=== PATIENT | male | born 1945 | race Caucasian/White ===

== ENCOUNTER 2021-11-24 20:13 | Inpatient (IN) ==
[2021-11-25] MEDS ORDERED: MOM Conc 10 ML UD.LIQ PO PRN ×2 (00:47→08:56)
[2021-11-25] MEDS ORDERED: Melatonin 3 MG TABLET PO PRN ×2 (00:47→08:56)
[2021-11-25] MEDS ORDERED: Acetaminophen 325 MG TABLET PO PRN ×2 (00:47→08:56)
[2021-11-25] MEDS ORDERED: Naloxone 0.4 MG/ML INJ IVP PRN ×2 (00:47→08:56)
[2021-11-25] MEDS ORDERED: *HR* Promethazine 25 MG/ML VIAL IM PRN ×2 (00:47→08:56)
[2021-11-25 01:37] LABS: Segmented Neutrophils % 80.5 %
[2021-11-25 01:38] LABS: Basophils # 0.2 K/mcL (0.0-0.2); Basophils % 0.6 %; Eosinophils # 0.2 K/mcL (0.0-0.6); Eosinophils % 0.7 %; Hemoglobin 9.5 g/dL (12.9-16.9); Immature Granulocytes % 6.8 % (0-4); Lymphocytes # 1.6 K/mcL (0.6-4.6); Mean Corpuscular HGB Conc 33.9 g/dL (31.6-35.5); Mean Corpuscular Hemoglobin 28.2 pg (28.0-33.3); Mean Corpuscular Volume 83.1 fL (83.0-100.0); Mean Platelet Volume 10.1 fL (9.4-12.4); Monocytes # 1.5 K/mcL (0.0-1.3); Monocytes % 5.4 %; Neutrophils # 21.7 K/mcL (1.6-8.9); Platelet Count 219 K/mcL (140-400); Red Blood Count 3.37 M/mcL (4.19-5.50); Red Cell Distribution Width 16.3 % (11.5-14.5)
[2021-11-25 01:58] LABS: Alanine Aminotransferase 26 Units/L (7-52); Albumin 2.2 g/dL (3.5-5.7); Albumin/Globulin Ratio 0.7 (1.1-2.2); Alkaline Phosphatase 72 Units/L (34-104); Aspartate Amino Transferase 39 Units/L (13-39); Bilirubin,Total 0.8 mg/dL (0.3-1.0); Blood Urea Nitrogen > 130 mg/dL (8-23); Calcium 8.6 mg/dL (8.6-10.3); Carbon Dioxide 23 mEq/L (23-29); Chloride 98 mEq/L (98-107); Glucose 108 mg/dL (70-105); Magnesium 2.4 mg/dL (1.6-2.6); Phosphorous 4.6 mg/dL (2.7-4.5); Sodium 132 mEq/L (136-145); Total Protein 5.2 g/dL (6.4-8.9); eGFR For African Americans 10 (> 60); eGFR For Non-African Americans 8 (> 60)
[2021-11-25 02:11] LABS: Hypochromasia Present (Not Present); Platelet Estimate Normal (Normal); Toxic Granulation Present (Not Present)
[2021-11-25] MEDS ORDERED: 0.9 % Sodium Chloride 1,000 ML IVC SCH (02:30)
[2021-11-25 03:10] LABS: C-Reactive Protein 132 mg/L (Less than 10)
[2021-11-25 03:42] LABS: Creatine Kinase 181 Units/L (30-223)
[2021-11-25] MEDS ORDERED: *HR* Dextrose 50 % in Water (Syg) 50 ML SYRINGE IVP PRN ×2 (04:10→08:56)
[2021-11-25] MEDS ORDERED: D5% in Water 1,000 ML IVC PRN ×2 (04:10→08:56)
[2021-11-25] MEDS ORDERED: Dextrose Gel 15 GM/37.5 ML TUBE PO PRN ×4 (04:10→08:56)
[2021-11-25] MEDS ORDERED: Pantoprazole 40 MG VIAL IVP SCH (06:00)
[2021-11-25 06:17] LABS: Bacteria,Urine Many per hpf (None-Few); Bilirubin,Urine Negative (Negative); Blood,Urine Moderate (Negative); Clarity,Urine Turbid (Clear); Color,Urine Yellow (Yellow); Glucose,Urine (UA) Normal (Normal); Ketones,Urine Negative (Negative); Leukocyte Esterase,Urine Large (Negative); Mucus,Urine Few per lpf (None-Few); Nitrite,Urine Negative (Negative); Protein,Urine 100 mg/dL (Neg-Trace); RBC,Urine TNTC per hpf (0-3); Renal Epithelial Cells,Urine Few per hpf (None-Few); Specific Gravity,Urine 1.015 (1.010-1.025); Urobilinogen,Urine Normal (Normal); WBC,Urine TNTC per hpf (0-3)
[2021-11-25] MEDS ORDERED: *HR* Propofol 200 MG/20 ML VIAL IVP ONE (07:20)
[2021-11-25] MEDS ORDERED: *HR* FentaNYL (PF) 100 MCG/2 ML VIAL ONE (07:20)
[2021-11-25] MEDS ORDERED: Ondansetron 4 MG/2 ML VIAL ONE (07:20)
[2021-11-25] MEDS ORDERED: Lidocaine -MPF 2% 5 ML VIAL ONE (07:20)
[2021-11-25] MEDS ORDERED: Sucralfate 1 GM TABLET PO SCH (07:30)
[2021-11-25] MEDS ORDERED: *HR* HYDROmorphone PF 0.5 MG/0.5 ML SYRINGE IVP PRN (07:45)
[2021-11-25] MEDS ORDERED: *HR* OxyCODONE Immed Rel 5 MG TABLET PO PRN (07:45)
[2021-11-25] MEDS ORDERED: Ondansetron 4 MG/2 ML VIAL IVP PRN (07:45)
[2021-11-25] MEDS ORDERED: *HR* Succinylcholine 200 MG/10 ML VIAL IVP ONE (08:01)
[2021-11-25] MEDS ORDERED: Cefepime HCl 2,000 MG in 0.9 % Sodium Chloride Mini Bag 100 ML IVPB SCH (09:00)
[2021-11-25] MEDS: 0.9 % Sodium Chloride 1,000 ML IVC SCH ×2 (09:20→17:53)
[2021-11-25] MEDS: Cefepime HCl 2,000 MG in 0.9 % Sodium Chloride Mini Bag 100 ML IVPB SCH (09:28)
[2021-11-25] MEDS: Sucralfate 1 GM TABLET PO SCH ×3 (11:54→21:00)
[2021-11-25 12:58] LABS: Blood Urea Nitrogen > 130 mg/dL (8-23); Calcium 8.5 mg/dL (8.6-10.3); Carbon Dioxide 22 mEq/L (23-29); Chloride 96 mEq/L (98-107); Glucose 117 mg/dL (70-105); Potassium 4.5 mEq/L (3.5-5.1); Sodium 134 mEq/L (136-145); eGFR For African Americans 10 (> 60); eGFR For Non-African Americans 8 (> 60)
[2021-11-25] MEDS: Pantoprazole 40 MG VIAL IVP SCH (17:40)
[2021-11-25 20:59] LABS: Blood Urea Nitrogen > 130 mg/dL (8-23); Calcium 8.5 mg/dL (8.6-10.3); Carbon Dioxide 23 mEq/L (23-29); Chloride 97 mEq/L (98-107); Glucose 204 mg/dL (70-105); Potassium 4.7 mEq/L (3.5-5.1); Sodium 133 mEq/L (136-145); eGFR For African Americans 10 (> 60); eGFR For Non-African Americans 8 (> 60)
[2021-11-26 02:35] LABS: VBG HCO3 22 mEq/L (21-27); VBG PCO2 29 mmHg (41-51); VBG PH 7.49 pH Units (7.32-7.42); VBG PO2 77 mmHg (25-50)
[2021-11-26 02:41] LABS: Basophils # 0.1 K/mcL (0.0-0.2); Basophils % 0.3 %; Hematocrit 25.9 % (37.5-50.1); Hemoglobin 8.9 g/dL (12.9-16.9); Immature Granulocytes % 8.6 % (0-4); Lymphocytes # 1.2 K/mcL (0.6-4.6); Lymphocytes % 5.6 %; Mean Corpuscular HGB Conc 34.4 g/dL (31.6-35.5); Mean Corpuscular Hemoglobin 28.9 pg (28.0-33.3); Mean Corpuscular Volume 84.1 fL (83.0-100.0); Mean Platelet Volume 10.3 fL (9.4-12.4); Monocytes # 0.8 K/mcL (0.0-1.3); Monocytes % 3.5 %; Neutrophils # 18.2 K/mcL (1.6-8.9); Platelet Count 266 K/mcL (140-400); Red Blood Count 3.08 M/mcL (4.19-5.50); Red Cell Distribution Width 17.1 % (11.5-14.5); White Blood Count 22.2 K/mcL (4.3-11.1)
[2021-11-26 03:07] LABS: Alanine Aminotransferase 21 Units/L (7-52); Albumin 2.3 g/dL (3.5-5.7); Albumin/Globulin Ratio 0.7 (1.1-2.2); Alkaline Phosphatase 64 Units/L (34-104); Aspartate Amino Transferase 24 Units/L (13-39); Bilirubin,Total 0.5 mg/dL (0.3-1.0); Blood Urea Nitrogen > 130 mg/dL (8-23); Calcium 8.2 mg/dL (8.6-10.3); Carbon Dioxide 20 mEq/L (23-29); Chloride 98 mEq/L (98-107); Globulin 3.1 g/dL (2.4-3.5); Glucose 162 mg/dL (70-105); Potassium 4.7 mEq/L (3.5-5.1); Sodium 135 mEq/L (136-145); Total Protein 5.4 g/dL (6.4-8.9); eGFR For African Americans 10 (> 60); eGFR For Non-African Americans 8 (> 60)
[2021-11-26 03:29] LABS: Platelet Estimate Normal (Normal)
[2021-11-26 03:30] LABS: Hypochromasia Present (Not Present)
[2021-11-26] MEDS: Pantoprazole 40 MG VIAL IVP SCH ×2 (04:13→17:22)
[2021-11-26] MEDS: 0.9 % Sodium Chloride 1,000 ML IVC SCH ×2 (04:14→14:00)
[2021-11-26 06:10] LABS: Estimated Average Glucose 128 mg/dl; Hemoglobin A1C 6.1 %
[2021-11-26] MEDS: Sucralfate 1 GM TABLET PO SCH ×2 (09:06→12:06)
[2021-11-26] MEDS: Cefepime HCl 2,000 MG in 0.9 % Sodium Chloride Mini Bag 100 ML IVPB SCH (09:12)
[2021-11-26 10:34] LABS: Uric Acid 14.3 mg/dL (2.3-7.6)
[2021-11-26 11:29] LABS: Hepatitis B Surface Antigen Nonreactive (Nonreactive)
[2021-11-26 11:58] LABS: Hepatitis C Virus Antibody Nonreactive (Nonreactive)
[2021-11-26 12:00] LABS: Hepatitis A Antibody IgM Nonreactive (Nonreactive)
[2021-11-26 13:32] LABS: Hepatitis B Core IgM Reactive (Nonreactive)
[2021-11-26 14:57] LABS: Blood Urea Nitrogen > 130 mg/dL (8-23); Calcium 8.7 mg/dL (8.6-10.3); Carbon Dioxide 20 mEq/L (23-29); Chloride 105 mEq/L (98-107); Glucose 112 mg/dL (70-105); Potassium 5.4 mEq/L (3.5-5.1); Sodium 136 mEq/L (136-145); eGFR For African Americans 11 (> 60); eGFR For Non-African Americans 9 (> 60)
[2021-11-26 15:51] LABS: Protein/Creatinine Ratio,Urine 2.98 mg/mg (0.00-0.20); Sodium, Urine 36.6 mEq/L
[2021-11-27] MEDS: 0.9 % Sodium Chloride 1,000 ML IVC SCH ×3 (01:04→21:34)
[2021-11-27] MEDS: Pantoprazole 40 MG VIAL IVP SCH (05:23)
[2021-11-27 05:41] LABS: Basophils # 0.1 K/mcL (0.0-0.2); Basophils % 0.5 %; Eosinophils # 0.2 K/mcL (0.0-0.6); Eosinophils % 0.8 %; Hematocrit 27.2 % (37.5-50.1); Hemoglobin 8.8 g/dL (12.9-16.9); Immature Granulocytes % 8.8 % (0-4); Lymphocytes % 10.1 %; Mean Corpuscular HGB Conc 32.4 g/dL (31.6-35.5); Mean Corpuscular Hemoglobin 28.2 pg (28.0-33.3); Mean Corpuscular Volume 87.2 fL (83.0-100.0); Monocytes # 1.5 K/mcL (0.0-1.3); Monocytes % 7.5 %; Neutrophils # 14.5 K/mcL (1.6-8.9); Platelet Count 295 K/mcL (140-400); Red Blood Count 3.12 M/mcL (4.19-5.50); Red Cell Distribution Width 17.2 % (11.5-14.5); Segmented Neutrophils % 72.3 %
[2021-11-27 06:24] LABS: Blood Urea Nitrogen > 130 mg/dL (8-23); Calcium 8.4 mg/dL (8.6-10.3); Carbon Dioxide 21 mEq/L (23-29); Chloride 102 mEq/L (98-107); Glucose 107 mg/dL (70-105); Potassium 4.4 mEq/L (3.5-5.1); Sodium 134 mEq/L (136-145); eGFR For African Americans 12 (> 60); eGFR For Non-African Americans 10 (> 60)
[2021-11-27 07:03] LABS: Hypochromasia Present (Not Present); Platelet Estimate Normal (Normal)
[2021-11-27] MEDS: Cefepime HCl 2,000 MG in 0.9 % Sodium Chloride Mini Bag 100 ML IVPB SCH (08:50)
[2021-11-28 02:29] LABS: Basophils # 0.2 K/mcL (0.0-0.2); Basophils % 0.8 %; Eosinophils # 0.2 K/mcL (0.0-0.6); Eosinophils % 0.8 %; Hematocrit 27.8 % (37.5-50.1); Hemoglobin 8.8 g/dL (12.9-16.9); Immature Granulocytes % 9.1 % (0-4); Lymphocytes % 9.4 %; Mean Corpuscular HGB Conc 31.7 g/dL (31.6-35.5); Mean Corpuscular Hemoglobin 28.1 pg (28.0-33.3); Mean Corpuscular Volume 88.8 fL (83.0-100.0); Monocytes % 6.4 %; Neutrophils # 15.5 K/mcL (1.6-8.9); Platelet Count 301 K/mcL (140-400); Red Blood Count 3.13 M/mcL (4.19-5.50); Red Cell Distribution Width 18.2 % (11.5-14.5); Segmented Neutrophils % 73.5 %; White Blood Count 21.1 K/mcL (4.3-11.1)
[2021-11-28 02:37] LABS: Calcium 7.9 mg/dL (8.6-10.3); Potassium 4.2 mEq/L (3.5-5.1)
[2021-11-28 02:39] LABS: Monocytes # 1.4 K/mcL (0.0-1.3)
[2021-11-28 03:24] LABS: Hypochromasia Present (Not Present); Platelet Estimate Normal (Normal)
[2021-11-28] MEDS ORDERED: Sodium Bicarbonate 75 MEQ in 0.45 % Sodium Chloride 1,000 ML IVC SCH ×2 (08:00→12:00)
[2021-11-28] MEDS: 0.9 % Sodium Chloride 1,000 ML IVC SCH (08:43)
[2021-11-28] MEDS ORDERED: Piperacillin/Tazobactam 3.375 GM in 0.9 % Sodium Chloride Mini Bag 100 ML IVPB SCH ×2 (10:00→16:00)
[2021-11-28] MEDS: Piperacillin/Tazobactam 3.375 GM in 0.9 % Sodium Chloride Mini Bag 100 ML IVPB SCH ×2 (10:56→21:37)
[2021-11-28] MEDS: Sodium Bicarbonate 75 MEQ in 0.45 % Sodium Chloride 1,000 ML IVC SCH (12:51)
[2021-11-28] MEDS ORDERED: Piperacillin/Tazobactam 2.25 GM in 0.9 % Sodium Chloride Mini Bag 100 ML IVPB SCH (16:00)
[2021-11-28] MEDS: Apixaban 2.5 MG TABLET PO SCH (21:36)
[2021-11-28 22:25] LABS: Lambda Qnt Free Light Chains 107.35 mg/L (5.71-26.30)
[2021-11-29] MEDS: Sodium Bicarbonate 75 MEQ in 0.45 % Sodium Chloride 1,000 ML IVC SCH ×3 (00:26→23:43)
[2021-11-29 01:57] LABS: Hematocrit 27.9 % (37.5-50.1); Hemoglobin 8.7 g/dL (12.9-16.9); Mean Corpuscular HGB Conc 31.2 g/dL (31.6-35.5); Mean Corpuscular Hemoglobin 27.5 pg (28.0-33.3); Mean Corpuscular Volume 88.3 fL (83.0-100.0); Mean Platelet Volume 10.3 fL (9.4-12.4); Platelet Count 278 K/mcL (140-400); Red Blood Count 3.16 M/mcL (4.19-5.50); Red Cell Distribution Width 17.6 % (11.5-14.5); White Blood Count 19.9 K/mcL (4.3-11.1)
[2021-11-29 02:18] LABS: Albumin 2.4 g/dL (3.5-5.7); Albumin/Globulin Ratio 0.8 (1.1-2.2); Bilirubin,Total 0.6 mg/dL (0.3-1.0); Calcium 8.1 mg/dL (8.6-10.3); Globulin 3.1 g/dL (2.4-3.5); Total Protein 5.5 g/dL (6.4-8.9)
[2021-11-29 02:37] LABS: Anisocytosis 1+ (Not Present); Eosinophils # 0.4 K/mcL (0.0-0.6); Monocytes # 0.4 K/mcL (0.0-1.3); Neutrophils # 15.1 K/mcL (1.6-8.9); Platelet Estimate Normal (Normal)
[2021-11-29 09:29] LABS: Kappa Qnt Free Light Chains 133.8 mg/L (3.30-19.40)
[2021-11-29] MEDS: Piperacillin/Tazobactam 3.375 GM in 0.9 % Sodium Chloride Mini Bag 100 ML IVPB SCH ×2 (09:47→20:15)
[2021-11-29] MEDS: Metoprolol XL (24 HR) Succ 50 MG TAB.ER.24H PO SCH (09:47)
[2021-11-29] MEDS: Apixaban 2.5 MG TABLET PO SCH ×2 (09:47→20:15)
[2021-11-29] MEDS: amLODIPine 5 MG TABLET PO SCH (09:47)
[2021-11-30 06:47] LABS: Basophils % 0.2 %; Eosinophils # 0.2 K/mcL (0.0-0.6); Eosinophils % 1.1 %; Hematocrit 23.5 % (37.5-50.1); Hemoglobin 7.3 g/dL (12.9-16.9); Immature Granulocytes % 4.1 % (0-4); Lymphocytes # 1.6 K/mcL (0.6-4.6); Mean Corpuscular HGB Conc 31.1 g/dL (31.6-35.5); Mean Corpuscular Hemoglobin 28.1 pg (28.0-33.3); Mean Corpuscular Volume 90.4 fL (83.0-100.0); Mean Platelet Volume 9.8 fL (9.4-12.4); Monocytes # 1.1 K/mcL (0.0-1.3); Monocytes % 6.9 %; Platelet Count 317 K/mcL (140-400); Red Cell Distribution Width 17.9 % (11.5-14.5); Segmented Neutrophils % 77.7 %; White Blood Count 15.5 K/mcL (4.3-11.1)
[2021-11-30 07:15] LABS: Albumin 2.3 g/dL (3.5-5.7); Albumin/Globulin Ratio 0.8 (1.1-2.2); Bilirubin,Total 0.5 mg/dL (0.3-1.0); Calcium 8.1 mg/dL (8.6-10.3); Globulin 2.8 g/dL (2.4-3.5); Potassium 3.9 mEq/L (3.5-5.1); Total Protein 5.1 g/dL (6.4-8.9)
[2021-11-30] MEDS: Furosemide 40 MG TABLET PO SCH (07:56)
[2021-11-30] MEDS: amLODIPine 5 MG TABLET PO SCH (07:56)
[2021-11-30] MEDS: Metoprolol XL (24 HR) Succ 50 MG TAB.ER.24H PO SCH (07:56)
[2021-11-30] MEDS: Piperacillin/Tazobactam 3.375 GM in 0.9 % Sodium Chloride Mini Bag 100 ML IVPB SCH ×2 (07:59→16:24)
[2021-11-30] MEDS: Apixaban 2.5 MG TABLET PO SCH (07:59)
[2021-11-30 08:43] LABS: Hematocrit 22.4 % (37.5-50.1); Hemoglobin 7.2 g/dL (12.9-16.9)
[2021-11-30] MEDS: Sodium Bicarbonate 75 MEQ in 0.45 % Sodium Chloride 1,000 ML IVC SCH ×2 (10:14→20:58)
[2021-11-30 14:53] LABS: Hematocrit 24.9 % (37.5-50.1); Hemoglobin 7.8 g/dL (12.9-16.9)
[2021-11-30] MEDS ORDERED: SODIUM CHLORIDE/NAHCO3/KCL/PEG 4,000 ML SOLN.RECON PO ONE (17:00)
[2021-11-30 21:21] LABS: Hematocrit 23.6 % (37.5-50.1); Hemoglobin 7.6 g/dL (12.9-16.9)
[2021-12-01] MEDS: Piperacillin/Tazobactam 3.375 GM in 0.9 % Sodium Chloride Mini Bag 100 ML IVPB SCH ×3 (00:09→16:21)
[2021-12-01 02:35] LABS: Basophils % 0.1 %; Eosinophils # 0.2 K/mcL (0.0-0.6); Eosinophils % 1.2 %; Hematocrit 23.8 % (37.5-50.1); Hemoglobin 7.4 g/dL (12.9-16.9); Immature Granulocytes % 2.1 % (0-4); Lymphocytes # 1.6 K/mcL (0.6-4.6); Lymphocytes % 11.6 %; Mean Corpuscular HGB Conc 31.1 g/dL (31.6-35.5); Mean Corpuscular Hemoglobin 28.1 pg (28.0-33.3); Mean Corpuscular Volume 90.5 fL (83.0-100.0); Mean Platelet Volume 9.9 fL (9.4-12.4); Monocytes # 1.2 K/mcL (0.0-1.3); Monocytes % 8.6 %; Neutrophils # 10.3 K/mcL (1.6-8.9); Platelet Count 323 K/mcL (140-400); Red Blood Count 2.63 M/mcL (4.19-5.50); Red Cell Distribution Width 17.8 % (11.5-14.5); Segmented Neutrophils % 76.4 %; White Blood Count 13.4 K/mcL (4.3-11.1)
[2021-12-01 02:50] LABS: Albumin 2.3 g/dL (3.5-5.7); Albumin/Globulin Ratio 0.8 (1.1-2.2); Bilirubin,Total 0.5 mg/dL (0.3-1.0); Potassium 3.3 mEq/L (3.5-5.1); Total Protein 5.3 g/dL (6.4-8.9)
[2021-12-01 06:35] LABS: Alpha 2 Globulin (PEP) 0.92 g/dL (0.48-1.05); Beta Globulin (PEP) 0.67 g/dL (0.48-1.10)
[2021-12-01] MEDS: Sodium Bicarbonate 75 MEQ in 0.45 % Sodium Chloride 1,000 ML IVC SCH (08:03)
[2021-12-01] MEDS: amLODIPine 5 MG TABLET PO SCH (08:18)
[2021-12-01] MEDS: Furosemide 40 MG TABLET PO SCH (08:18)
[2021-12-01] MEDS: Metoprolol XL (24 HR) Succ 50 MG TAB.ER.24H PO SCH (08:18)
[2021-12-01 10:31] LABS: IFE Reflexed NOT DONE
[2021-12-02] MEDS: Piperacillin/Tazobactam 3.375 GM in 0.9 % Sodium Chloride Mini Bag 100 ML IVPB SCH ×3 (01:15→17:56)
[2021-12-02 01:48] LABS: Hematocrit 23.4 % (37.5-50.1); Hemoglobin 7.4 g/dL (12.9-16.9); Mean Corpuscular HGB Conc 31.6 g/dL (31.6-35.5); Mean Corpuscular Hemoglobin 28.8 pg (28.0-33.3); Mean Corpuscular Volume 91.1 fL (83.0-100.0); Platelet Count 319 K/mcL (140-400); Red Blood Count 2.57 M/mcL (4.19-5.50); Red Cell Distribution Width 17.4 % (11.5-14.5)
[2021-12-02 02:09] LABS: Potassium 3.6 mEq/L (3.5-5.1)
[2021-12-02] MEDS: amLODIPine 5 MG TABLET PO SCH (08:37)
[2021-12-02] MEDS: Furosemide 40 MG TABLET PO SCH (08:37)
[2021-12-02] MEDS: Metoprolol XL (24 HR) Succ 50 MG TAB.ER.24H PO SCH (08:37)
[2021-12-03 02:57] LABS: Hematocrit 22.9 % (37.5-50.1); Hemoglobin 7.2 g/dL (12.9-16.9); Mean Corpuscular HGB Conc 31.4 g/dL (31.6-35.5); Mean Corpuscular Hemoglobin 28.6 pg (28.0-33.3); Mean Corpuscular Volume 90.9 fL (83.0-100.0); Platelet Count 295 K/mcL (140-400); Red Blood Count 2.52 M/mcL (4.19-5.50)
[2021-12-03 03:22] LABS: Calcium 8.3 mg/dL (8.6-10.3); Potassium 3.1 mEq/L (3.5-5.1)
[2021-12-03] MEDS: amLODIPine 5 MG TABLET PO SCH (08:52)
[2021-12-03] MEDS: Furosemide 40 MG TABLET PO SCH (08:52)
[2021-12-03] MEDS: Metoprolol XL (24 HR) Succ 50 MG TAB.ER.24H PO SCH (08:52)
[2021-12-03] MEDS: Piperacillin/Tazobactam 3.375 GM in 0.9 % Sodium Chloride Mini Bag 100 ML IVPB SCH ×3 (08:53→16:11)
[2021-12-03] MEDS ORDERED: Lidocaine -MPF 2% 5 ML VIAL ONE (10:28)
[2021-12-03 15:25] VITALS: BP 117/68; PULSE 93; TEMP 97.8; O2SAT 96
== END 2021-12-03 17:47 | disposition home or self-care (01) | DRG 659 ==
LOC: 2ANU → SUATTDRO 11-25 00:32
PROVIDERS: ADMIT Internal Medicine; ATTEND Family Medicine
PROC: ENDOEBX (2021-11-26 13:00)
PROC: ENDOCBX (2021-12-03 13:00)